=== PATIENT | female | born 1945 | race Caucasian/White ===

== ENCOUNTER 2018-03-27 08:47 | Inpatient (IN) | payer OTHER ==
[~2018-03-27] VITALS: Ht 154.9 cm; Wt 82.6 kg
[~2018-03-27 08:47] MED LIST: CEFOXITIN 2 GM/DEXTROSE,ISO 50 ML (PREMIX) IV ONE
[2018-03-27] MEDS ORDERED: POLYMYXIN 500,000/BACIT.10,000 UNITS in NS IRR 1 L IR ONE (11:07)
[2018-03-27] MEDS ORDERED: LR 1,000 ML IV SCH (11:37)
[2018-03-27] MEDS ORDERED: HYDROmorphone 1 MG INJ. 1 MG/ML AMPUL IVP PRN (11:45)
[2018-03-27] MEDS ORDERED: MEPERIDINE HCL/PF 25 MG/ML DISP.SYRIN IVP PRN (11:45)
[2018-03-27] MEDS ORDERED: HYDROmorphone 2 MG/ML VIAL IVP PRN ×2 (11:45)
[2018-03-27] MEDS ORDERED: HYDROcodone/ACETAMIN 5-325 MG TAB (NORCO/ VICODIN) PO PRN ×2 (13:15)
[2018-03-27] MEDS ORDERED: ONDANSETRON HCL 4 MG/2 ML VIAL IVP PRN (13:15)
[2018-03-27] MEDS ORDERED: ACETAMINOPHEN 325 MG TABLET PO PRN ×2 (13:15)
[2018-03-27] MEDS ORDERED: MORPHINE 4 MG/ML INJ. SYRINGE IVP PRN (13:15)
[2018-03-27 14:05] VITALS: BP_SYST 141
[2018-03-27] MEDS: CEFAZOLIN 1 GM IVPB PREMIX 50 ML IV SCH ×2 (15:30→21:51)
[2018-03-27] MEDS: LR 1,000 ML IV SCH (15:32)
[2018-03-27 20:13] VITALS: BP_SYST 98
[2018-03-27] MEDS: DOCUSATE SODIUM 100 MG CAPSULE PO SCH (21:00)
[2018-03-27] MEDS ORDERED: ZOLPIDEM TARTRATE 5 MG TABLET PO PRN ×2 (21:45→23:00)
[2018-03-27] MEDS ORDERED: ZOLPIDEM TARTRATE 5 MG TABLET ONE (23:38)
[2018-03-28 00:32] VITALS: BP_SYST 104
[2018-03-28] MEDS ORDERED: MAG-AL HYDROX/SIMETH 30 ML UDC PO ONE (00:45)
[2018-03-28] MEDS ORDERED: MAG-AL HYDROX/SIMETH 30 ML UDC PO PRN (00:45)
[2018-03-28] MEDS: LR 1,000 ML IV SCH ×3 (06:50→20:34)
[2018-03-28 08:17] VITALS: BP_SYST 126
[2018-03-28] MEDS: DOCUSATE SODIUM 100 MG CAPSULE PO SCH ×2 (08:19→20:29)
[2018-03-28] MEDS ORDERED: SODIUM CHLORIDE 5% EYE DROPS 15 ML OP PRN ×2 (10:15→10:38)
[2018-03-28 12:02] VITALS: BP_SYST 133
[2018-03-28] MEDS ORDERED: LR 1,000 ML IV.SOLN IV ONE (13:00)
[2018-03-28] MEDS ORDERED: DEXAMETHASONE SOD PHOSPHATE 4 MG/ML VIAL ONE (13:00)
[2018-03-28] MEDS ORDERED: cefOXitin SODIUM 2 GM/VIAL (MEFOXIN) ONE (13:00)
[2018-03-28] MEDS ORDERED: BUPIVACAINE LIPOSOME/PF 266 MG/20 ML VIAL INFIL ONE (13:00)
[2018-03-28] MEDS ORDERED: KETOROLAC TROMETHAMINE 30 MG VIAL ONE (13:00)
[2018-03-28] MEDS ORDERED: ONDANSETRON HCL 4 MG/2 ML VIAL ONE (13:00)
[2018-03-28] MEDS ORDERED: PROPOFOL 200MG/ 20ML VIAL (DIPRIVAN) IV ONE (13:00)
[2018-03-28] MEDS ORDERED: ROCURONIUM BROMIDE 10 MG/ML (ZEMURON) ONE (13:00)
[2018-03-28] MEDS ORDERED: fentaNYL CITRATE 250 MCG/5 ML AMP ONE (13:00)
[2018-03-28] MEDS ORDERED: MIDAZOLAM HCL 5 MG/ML VIAL (VERSED) IV ONE (13:00)
[2018-03-28] MEDS ORDERED: D5W 100 ML IV.SOLN IV ONE (13:00)
[2018-03-28] MEDS ORDERED: SEVOFLURANE 15 MIN GAS INH ONE (13:00)
[2018-03-28] MEDS ORDERED: DICLOFENAC SODIUM 25 MG TABLET.DR PO PRN (13:45)
[2018-03-28 16:02] VITALS: BP_SYST 126
[2018-03-28 20:00] VITALS: BP_SYST 114
[2018-03-29 00:08] VITALS: BP_SYST 117
[2018-03-29 08:47] VITALS: BP_SYST 114
[2018-03-29] MEDS: DOCUSATE SODIUM 100 MG CAPSULE PO SCH (08:51)
[2018-03-29 12:10] VITALS: BP_SYST 120
[2018-03-29 12:12] VITALS: BP_SYST 120
== END 2018-03-29 13:25 | disposition home or self-care (01) | DRG 355 ==
LOC: SDS 08:47 → SMU 08:48 → SDS 03-28 10:24 → SMU 03-28 10:24
PROVIDERS: ADMIT Surgery; ATTEND Surgery
PROC: 0WUF0JZ Supplement Abdominal Wall with Synthetic Substitute, Open Approach (ICD-10-PCS; principal; 2018-03-27 11:00)
DX: K43.2 Incisional hernia without obstruction or gangrene (principal); K59.00 Constipation, unspecified; E66.01 Morbid (severe) obesity due to excess calories; M51.36 Other intervertebral disc degeneration, lumbar region; M54.30 Sciatica, unspecified side; G89.29 Other chronic pain; Z68.34 Body mass index [BMI] 34.0-34.9, adult
CPT/HCPCS: 87081; 88302; C1781; C9290; J0690; J0694; J1100; J1885; J2250; J2405; J2704; J3010; J7060; J7120